=== PATIENT | female | born 1990 | race Caucasian/White ===

== ENCOUNTER 2018-07-29 14:58 | Emergency (ER) | payer OTHER ==
[~2018-07-29] VITALS: Ht 170.2 cm; Wt 72.6 kg
[~2018-07-29 14:58] MED LIST: ACET325 PO; ALBU90OI INH; AZIT250 PO; BIRTH CONTROL; Bactrim Ds Tab1 EACH PO; CAPS28.3TC TOP; CIPR500 PO; CYCL10 PO; HYDACE5325 PO; HYDGUAL120 PO; IBUP400 PO; IBUP800 PO; MELO7.5 PO; NAPR500 PO; Naprosyn500 MG PO; Norco 5-325 Ta1 EACH PO; OXYACE5T PO; Percocet 10-321 EACH PO; Ultram50 MG PO; Valium5 MG PO
[2018-07-29] MEDS ORDERED: Norco 5-325 Ta1 EACH PO (19:45)
== END 2018-07-29 20:32 | disposition home or self-care (01) ==
LOC: ER 14:58
DX: R51 Headache (principal); G89.29 Other chronic pain; Z88.5 Allergy status to narcotic agent; Z88.8 Allergy status to other drugs, medicaments and biological substances; Z79.899 Other long term (current) drug therapy
CPT/HCPCS: 36415; 70450; 72125; 96374; 96375; 99284-25; J1200; J1885; J2765; J3010

== ENCOUNTER → 2020-11-26 | Outpatient (CLI) | payer OTHER | END | disposition home or self-care (01) | LOC: LAB EV 18:59 → LAB SHORT 18:59 | DX: J03.90 Acute tonsillitis, unspecified (principal) | CPT/HCPCS: 87070 ==

== ENCOUNTER 2021-09-13 10:19 | Day surgery (SDC) | payer OTHER ==
[~2021-09-13] VITALS: Ht 170.2 cm; Wt 73.6 kg
[2021-09-13] MEDS ORDERED: AIMOVIG AU70 MG/1 ML SQ (11:07)
[2021-09-13] MEDS ORDERED: CYCLOBENZAPRINE5 MG PO (11:07)
[2021-09-13] MEDS ORDERED: GABA100 (11:07)
--- NOTE | 2021-09-13 11:16 | NUR ---
09/13/21 1116 Arun Noyola CALL LIGHT WITHIN REACH
--- NOTE | 2021-09-13 11:48 | NUR ---
09/13/21 1148 Corinne Ovalle PT HAS A TOPICAL IODINE ALLERGY- RASH. NO NOLAN NOTIFIED. PER DR TAVARES VAGINAL PREP WILL BE CHOLAHEXADINE 1:1 W/ NORMAL SALINE. ABDOMINAL PREP WILL BE CLORAPREP. BUPIVACAINE 0.5% 30 MLS MIXED WITH EPI 0.15 ML PER ORDER TO MAKE BUPIVACAINE 0.5% 1:200,000 FOR INJECTION AT OPSITE BY DR TAVARES.
== END 2021-09-13 13:23 | disposition home or self-care (01) ==
LOC: ORSCSDS 10:19
PROVIDERS: Obstetrics & Gynecology
PROC: 0UT74ZZ Resection of Bilateral Fallopian Tubes, Percutaneous Endoscopic Approach (ICD-10-PCS; principal; 2021-09-13 11:30)
DX: Z30.2 Encounter for sterilization (principal); K21.9 Gastro-esophageal reflux disease without esophagitis; G40.909 Epilepsy, unspecified, not intractable, without status epilepticus; Z79.899 Other long term (current) drug therapy
CPT/HCPCS: 88302; J0171; J1100; J1885; J2250; J2405; J2704; J2710; J3010; J7120

== ENCOUNTER → 2022-03-22 | Outpatient (CLI) | payer OTHER ==
[~2022-03-22] MED LIST changes: +AIMOVIG AU70 MG/1 ML SQ; +CYCLOBENZAPRINE5 MG PO; +GABA100; +ONDA4ODT MM
[2022-03-23 11:14] LABS: Candida species (DNA Probe) Negative (NEGATIVE); G. vaginalis (DNA Probe) Negative (NEGATIVE); T. vaginalis (DNA Probe) Negative (NEGATIVE)
[2022-03-25 05:10] LABS: CHLAMYDIA TRACHOMATIS, NAA Negative (Negative)
== END | disposition home or self-care (01) ==
LOC: LAB 19:12 → LAB SHORT 19:12
PROVIDERS: Family Medicine
DX: Z12.4 Encounter for screening for malignant neoplasm of cervix (principal)
CPT/HCPCS: 87480; 87510; 87660

== ENCOUNTER → 2022-04-12 | Outpatient (CLI) | payer OTHER | END | disposition home or self-care (01) | LOC: LAB SHORT 07:38 → LAB 07:38 | DX: D06.0 Carcinoma in situ of endocervix (principal); D06.7 Carcinoma in situ of other parts of cervix | CPT/HCPCS: 88305 ==

== ENCOUNTER → 2022-05-16 | Outpatient (CLI) | payer OTHER | END | disposition home or self-care (01) | LOC: LAB 07:59 → LAB SHORT 07:59 | DX: D06.7 Carcinoma in situ of other parts of cervix (principal) | CPT/HCPCS: 88305 ==